=== PATIENT | female | born 1965 | race Caucasian/White ===

== ENCOUNTER → 2016-11-04 | Outpatient (CLI) | payer OTHER ==
--- NOTE | 2016-11-04 09:54 | RAD ---
Left index finger, 3 views, 11/04/2016: History: Pain, injury No acute fracture or dislocation is identified. A small lucency projected over the dorsal aspect of the proximal end of the middle phalanx at the PIP joint level on the lateral view is compatible with old trauma. IMPRESSION: No acute bony abnormality is detected.
== END | disposition home or self-care (01) ==
LOC: RAD 09:28
PROVIDERS: ATTEND Orthopaedic Surgery
DX: M79.645 Pain in left finger(s) (principal)
CPT/HCPCS: 73140